=== PATIENT | male | born 1960 | race Caucasian/White ===

== ENCOUNTER → 2024-05-18 | Outpatient (CLI) | payer SELFPAY ==
--- NOTE | 2024-05-18 16:56 | HMCIMG ---
CT CORONARY CALCIFICATION SCORING: Anatomic images were reviewed. The calcium score is being generated and reported separately. This report is for the visualized anatomy only. Visualized portions of the lungs are clear. Hilar and mediastinal structures appear normal. Osseous structures are unremarkable. Impression: 1. Negative noncardiac anatomic findings. 2. The calcium score is 22.2 consistent with a mild degree of calcified plaque. This is 30th percentile for a patient this age. CT was performed with one or more following dose reduction techniques: automated exposure control, adjustment of the mA and kv according to patient's size, or use of a iterative reconstruction technique.
== END | disposition home or self-care (01) ==
LOC: OIH 15:47
PROVIDERS: ATTEND Internal Medicine Cardiovascular Disease
DX: Z13.6 Encounter for screening for cardiovascular disorders (principal); R93.1 Abnormal findings on diagnostic imaging of heart and coronary circulation; I25.10 Atherosclerotic heart disease of native coronary artery without angina pectoris
CPT/HCPCS: 75571

== ENCOUNTER → 2025-01-18 | Outpatient (CLI) | payer BC ==
[~2025-01-18] MED LIST: IOHEXOL 350 MG/ML 100ML INFUS..BTL IV ONE
--- NOTE | 2025-01-19 13:48 | HMCIMG ---
EXAM: CT Chest, Abdomen, and Pelvis with IV contrast CLINICAL HISTORY: Malignant neoplasm of the sigmoid colon. TECHNIQUE: Thin collimated axial CT images of the chest, abdomen, and pelvis were obtained, with sagittal and coronal reformatted images also submitted. A CT scan is done according to ALARA (As Low As Reasonably Achievable). COMPARISON: None. FINDINGS: Mild scarring in the anterior segment of the right upper lobe. No pulmonary nodules. No pulmonary infiltrates. No pleural effusions. No pericardial effusion. The heart size is within normal limits. No axillary, supraclavicular, or mediastinal lymphadenopathy. There is no focal abnormality appreciated within the gallbladder, pancreas, spleen, or adrenals. There is a 2mm calculus in the upper pole of the left kidney. A few scattered, tiny calcified granulomas in the liver. There is circumferential thickening of the sigmoid colon for a length of 6 cms with a signal wall thickness of 1.5 cms. Mild constipation. The appendix is normal. Unremarkable reproductive organs. Abdominal and pelvic vessels are patent. No lymphadenopathy. No free fluid. No pneumoperitoneum. There is no acute osseous abnormality. IMPRESSIONS: 1. Circumferential bowel wall thickening with stricture of the sigmoid colon which likely represents the patient's known sigmoid cancer. No mesenteric lymphadenopathy. 2. No evidence of metastatic disease in the chest, abdomen or pelvis. 3. No pulmonary infiltrates or pleural effusions. 4. Mild scarring in the anterior segment of the right upper lobe. 5. No acute abdominal or pelvic pathology. /Penn Laird
== END | disposition home or self-care (01) ==
LOC: RAH 07:53
PROVIDERS: ATTEND Internal Medicine Gastroenterology
DX: C18.7 Malignant neoplasm of sigmoid colon (principal); K76.89 Other specified diseases of liver; N20.0 Calculus of kidney; K75.3 Granulomatous hepatitis, not elsewhere classified; K59.00 Constipation, unspecified
CPT/HCPCS: 71260; 74177; Q9967